=== PATIENT | male | born 2000 ===

== ENCOUNTER 2020-11-03 03:35 | Inpatient (IN) | payer OTHER, SELFPAY ==
[~2020-11-03] VITALS: Ht 188 cm; Wt 84.1 kg
[2020-11-03] VITALS (15 sets, daily range): BP systolic 31–153; BP diastolic 24–100
[2020-11-03] MEDS ORDERED: AMIODARONE 150MG/3ML INJ (J0282) IVP STA (04:01)
[2020-11-03] MEDS ORDERED: SODIUM BICARBONATE 8.4% INJ 50 ML SYRINGE IV STA ×3 (04:02→04:16)
[2020-11-03] MEDS ORDERED: EPINEPHrine 1MG/10ML SYRINGE 1.5IN IV STA ×9 (04:04→06:01)
[2020-11-03] MEDS ORDERED: MAG SULF 1GM/100ML (MAG RUN) 1 GM in IV 1 EA IV ONE (04:05)
[2020-11-03 04:25] LABS: HEMATOCRIT 41.5 % (42.0-52.0); HEMOGLOBIN 12.3 g/dl (13.5-17.5); MEAN CORPUSCULAR HEMOGLOBIN 28.9 pg (27.0-33.0); MEAN CORPUSCULAR HGB CONC 29.6 g/dl (32.0-36.5); MEAN CORPUSCULAR VOLUME 97.4 fl (80.0-96.0); RED BLOOD COUNT 4.26 10^6/uL (4.30-6.10); WHITE BLOOD COUNT 6.2 10^3/uL (4.0-10.0)
[2020-11-03 04:47] LABS: PLATELET COUNT, AUTOMATED 64 10^3/uL (150-450)
[2020-11-03 04:52] LABS: ANISOCYTOSIS 1+; ATYPICAL LYMPH 8 % (0-5); LYMPHOCYTES 79 % (16-44); MONOCYTES 4 % (0-5); NEUTROPHILS 9 % (28-66); PLATELET ESTIMATE MARKED DECREASE (NORMAL); POIKILOCYTOSIS 1+; SMUDGE CELLS 1+
[2020-11-03 04:54] LABS: BURR CELLS 2+
[2020-11-03 04:57] LABS: ALBUMIN 2.6 GM/DL (3.2-5.2); BILIRUBIN,DIRECT 0.1 MG/DL (0.0-0.2); BILIRUBIN,TOTAL 0.4 MG/DL (0.2-1.0); CALCIUM LEVEL 8.3 MG/DL (8.5-10.1); CK-MB VALUE MASS 7.2 NG/ML (<3.6); CREATININE FOR GFR 1.59 MG/DL (0.70-1.30); FREE T4 1.15 NG/DL (0.76-1.46); GLOMERULAR FILTRATION RATE 58.8 (>60); MB/CK RELATIVE INDEX 1.06 (< OR =4); POTASSIUM SERUM 4.5 MEQ/L (3.5-5.1); THYROID STIMULATING HORMONE 4.62 uIU/ML (0.358-3.740); TOTAL PROTEIN 5.8 GM/DL (6.4-8.2); TROPONIN I 0.42 NG/ML (< 0.10)
--- NOTE | 2020-11-03 05:22 | REPVR ---
PROCEDURE INFORMATION: Exam: XR Chest Exam date and time: 11/03/2020 4:00 AM Age: 20 years old Clinical indication: Other: Arrest, it; Additional info: S/P arrest TECHNIQUE: Imaging protocol: XR of the chest. Views: 1 view. COMPARISON: No relevant prior studies available. FINDINGS: Tubes, catheters and devices: Endotracheal tube tip resides 2.6 cm above the sea. Lungs: Bilateral rather diffuse pulmonary infiltrates which are most pronounced in the upper lobes. Pleural spaces: Unremarkable. No pleural effusion. No pneumothorax. Heart/Mediastinum: Accentuation of the cardiac silhouette which may be on the basis of AP technique. Bones/joints: Unremarkable. IMPRESSION: Bilateral pulmonary infiltrates with prominent airspace component most prominent in the upper lobes. Electronically signed by: Allie Minor On 11/03/2020 05:21:58 AM
--- NOTE | 2020-11-03 05:23 | REPVR ---
PROCEDURE INFORMATION: Exam: CT Head Without Contrast Exam date and time: 11/03/2020 4:15 AM Age: 20 years old Clinical indication: Other: Hanging; Additional info: Arrest S/P hanging TECHNIQUE: Imaging protocol: Computed tomography of the head without contrast. Radiation optimization: All CT scans at this facility use at least one of these dose optimization techniques: automated exposure control; mA and/or kV adjustment per patient size (includes targeted exams where dose is matched to clinical indication); or iterative reconstruction. COMPARISON: No relevant prior studies available. FINDINGS: Brain: Diffuse effacement of sulci. Trace CSF in basal cisterns. Poor differentiation of kaiser and white matter. Cerebral ventricles: Small central ventricular system. Paranasal sinuses: Visualized sinuses are unremarkable. No fluid levels. Mastoid air cells: Visualized mastoid air cells are well aerated. Bones/joints: Unremarkable. No acute fracture. Soft tissues: Unremarkable. IMPRESSION: Diffuse intracranial mass effect consistent with cerebral edema. Electronically signed by: Blake Landry On 11/03/2020 05:23:00 AM
--- NOTE | 2020-11-03 05:26 | REPVR ---
PROCEDURE INFORMATION: Exam: CT Cervical Spine Without Contrast Exam date and time: 11/03/2020 4:15 AM Age: 20 years old Clinical indication: Injury or trauma; Other: Hanging; Concussion/head injury; Additional info: Arrest S/P hanging TECHNIQUE: Imaging protocol: Computed tomography images of the cervical spine without contrast. Radiation optimization: All CT scans at this facility use at least one of these dose optimization techniques: automated exposure control; mA and/or kV adjustment per patient size (includes targeted exams where dose is matched to clinical indication); or iterative reconstruction. COMPARISON: CR PORTABLE CHEST X-RAY 11/03/2020 4:00 AM FINDINGS: Tubes, catheters and devices: ET tube in position. Bones/joints: No acute fracture. Normal alignment. Discs/Spinal canal/Neural foramina: No significant disc protrusion. No severe spinal canal stenosis. No significant neural foraminal narrowing. Sinuses: Minimal left maxillary sinus mucosal thickening. Lungs: Bilateral upper lobe pulmonary infiltrates and consolidation. Soft tissues: Unremarkable. IMPRESSION: 1. ET tube in position. 2. Minimal left maxillary sinus disease. 3. Bilateral upper lobe pulmonary infiltrates and consolidation which may reflect pulmonary edema. Pneumonia is not excluded. 4. Otherwise negative CT cervical spine. No fracture or subluxation is evident and no spinal or foraminal stenosis. Electronically signed by: Blake Landry On 11/03/2020 05:26:07 AM
--- NOTE | 2020-11-03 05:50 | REPVR ---
PROCEDURE INFORMATION: Exam: XR Chest Exam date and time: 11/03/2020 5:23 AM Age: 20 years old Clinical indication: Other: Eval og tubes; Additional info: Eval og tube TECHNIQUE: Imaging protocol: XR of the chest. Views: 1 view. COMPARISON: CR PORTABLE CHEST X-RAY 11/03/2020 4:00 AM FINDINGS: Tubes, catheters and devices: ET tube in position with the tip just below the clavicular heads, approximately 2.6 cm above the sea. OG tube forming a loop in the stomach with the tip extending into the gastric fundus. Lungs: Bilateral pulmonary infiltrates and consolidation, greatest in the right upper lobe which is increased since the prior study. Pleural spaces: Unremarkable. No pleural effusion. No pneumothorax. Heart/Mediastinum: Unremarkable. No cardiomegaly. Bones/joints: Unremarkable. IMPRESSION: 1. OG tube insertion since the prior study which forms a loop in the stomach with the tip extending into the gastric fundus. 2. Increased bilateral pulmonary infiltrates and consolidation since the study done earlier in the day consistent with pulmonary edema Electronically signed by: Blake Landry On 11/03/2020 05:49:26 AM
[2020-11-03 05:56] LABS: ABG BASE EXCESS -18.4 (-2.0-2.0); ABG HCO3 15.5 MEQ/L (22.0-26.0); ABG O2 SATURATION 83.1 % (95.0-99.0); ABG PARTIAL PRESSURE O2 75.3 mmHg (75.0-100.0); ABG STANDARD HCO3 10.9 MEQ/L (22.0-26.0); ABG TOTAL CO2 17.9 MEQ/L (22.0-29.0)
[2020-11-03 05:57] LABS: ABG PARTIAL PRESSURE CO2 78.7 mmHg (35.0-45.0); ABG pH (ARTERIAL) 6.913 UNITS (7.350-7.450)
[2020-11-03] MEDS: NOREPINEPHRINE BITARTRATE 8 MG in D5W 492 ML IV SCH ×2 (05:58→08:00)
[2020-11-03] MEDS ORDERED: FUROSEMIDE 40MG/4ML VIAL (J1940) IV ONE (06:10)
[2020-11-03 06:46] LABS: MAGNESIUM LEVEL 3.5 MG/DL (1.8-2.4); PHOSPHORUS LEVEL 11.1 MG/DL (2.5-4.9)
[2020-11-03] MEDS ORDERED: HEPARIN SOD (PORCINE) 5000UNITS/ML 1ML VIAL/SYRINGE SC SCH (06:55)
[2020-11-03] MEDS ORDERED: ACETAMINOPHEN 650 MG SUPP PR PRN (06:55)
[2020-11-03] MEDS ORDERED: NOREPINEPHRINE BITARTRATE 8 MG in D5W 492 ML IV SCH ×2 (06:55→10:00)
[2020-11-03] MEDS ORDERED: EPINEPHrine HCL INJ 1 MG in D5W 240 ML IV SCH ×3 (07:45→09:00)
[2020-11-03 07:59] LABS: PROTHROMBIN TIME 31.5 SECONDS (12.7-14.5)
[2020-11-03 08:01] LABS: D-DIMER QUANT > 4000 ng/ml (<500)
--- NOTE | 2020-11-03 08:10 | ECGEPIP ---
[facility] - ED Test Date: 2020-11-03 Pat Name: SAMANTHA RALPH Department: Room: - Gender: Male Returner: KAYLA : 2000 Requested By: MARIA T Angela Order Number: [id number] Reading MD: Mauricio Astudillo Measurements Intervals [place] Rate: 38 P: MA: QRS: 201 QRSD: 154 T: 43 QT: 502 QTc: 399 Interpretive Statements Critical Test Result: Low HR , Arrhythmia Idioventricular rhythm Right bundle branch block NO PRIORS FOR COMPARISON Electronically Signed on 11-03-2020 8:09:35 EDT by Mauricio Astudillo
--- NOTE | 2020-11-03 08:10 | ECGEPIP ---
[facility] - ED Test Date: 2020-11-03 Pat Name: SAMANTHA RALPH Department: Room: - Gender: Male Test Developer: KAYLA : 2000 Requested By: MARIA T Angela Order Number: [id number] Reading MD: Mauricio Astudillo Measurements Intervals [place] Rate: 75 P: -18 HI: 234 QRS: 198 QRSD: 168 T: 51 QT: 474 QTc: 529 Interpretive Statements Sinus rhythm with 1st degree AV block Right bundle branch block RHYTHM/RATE CHANGE COMPARED TO PRIOR ON SAME DATE Electronically Signed on 11-03-2020 8:10:09 EDT by Mauricio Astudillo
--- NOTE | 2020-11-03 08:11 | HPEPDOC ---
[facility] Medical History & Physical Date of Admission Nov 03, 2020 Date of Service: Nov 03, 2020 Attending Physician: PRIETO GARCIA MD History and Physical CHIEF COMPLAINT: Cardiac arrest HISTORY OF PRESENT ILLNESS: This is a 20-year-old male with no significant past medical history brought in by EMS with cardiac arrest. Patient is a personnel and last seen alive around 12:30 AM this morning. He was found hanging around 2:15 AM in the field/[place] and personnel performed CPR. EMS arrived and continue along with CPR with epinephrine's. He was brought into the emergency department in cardiac arrest status. He received several rounds of CPR, epinephrine. Initial arrest rhythm was PEA. However in the emergency department, he had several episodes of ventricular fibrillation and torsades. He received shock and amiodarone. ROSC was achieved and ICU was consulted for further management. Total arrest time is approximately 1.5 hours. Post cardiac arrest and with ROSC, his pupils are not reactive to light and they are completely dilated. There is no evidence of corneal, gag, cough reflexes. He is not breathing over the ventilator. There are clinical evidence of anoxic brain injury and possible brain . Work-up revealed that he is a multiorgan failure with JYOTSNA, shock liver, hypoxic respiratory failure secondary to pulmonary contusion, cerebral edema, cardiogenic versus neurogenic shock requiring vasopressor support. I had extensive discussion with his Chances we regarding to his poor prognosis. Patient is currently undergoing targeted temperature management at 36 C. I also spoke to his mom and grandmother. They all like to keep him at full code for now. Bedside echocardiogram done show severely hypokinetic ventricles. PAST MEDICAL HISTORY: None PAST SURGICAL HISTORY: None SOCIAL HISTORY: Patient is and [place] with his . FAMILY HISTORY: Noncontributory to this hospital admission. ALLERGIES: Please see below. REVIEW OF SYSTEMS: Unable to complete review of system due to patient being encephalopathic, intubated and with anoxic brain injury. HOME MEDICATIONS: Please see below. PHYSICAL EXAMINATION: VITAL SIGNS: See below for vital sign GENERAL APPEARANCE: Encephalopathic and not responding to any verbal or painful stimuli. HEENT: No evidence of JVD or cervical adenopathy CARDIOVASCULAR: Normal S1-S2 with no evidence of murmur. LUNGS: Clear to auscultation bilaterally. ABDOMEN: Soft, not distended, absent of bowel sounds. MUSCULOSKELETAL: No evidence of joint effusion or joint swelling. EXTREMITIES: No clubbing or pedal edema. NEUROLOGICAL: Pupils are fixed and dilated, they are not reactive to light. Doll's eye. There is no evidence of gag or cough reflexes. There is no duane dence of corneal reflexes. He is not responding to any painful or verbal stimuli. He is not breathing over the ventilator. PSYCHIATRIC: Cannot be assessed. LABORATORY DATA: See below. MICROBIOLOGY: Please see below. ASSESSMENT: This is a 20-year-old male with no significant past medical history brought in by EMS with cardiac arrest after being found hanged. #Status post cardiac arrest -Patient will undergo 24 hours of targeted temperature management. However, it is poor prognosis given the duration of cardiac arrest and evidence of anoxic brain injury with suspected brain . #Cardiogenic and neurogenic shock -Secondary to cardiac arrest and cerebral edema. Continue Levophed. We will add epinephrine. #Anoxic brain injury with suspected brain -He will undergo 24 hours of targeted temperature management. There is evidence of cerebral edema on the CT scan of the brain. Prognosis is extremely poor given lack of brainstem reflexes. We will determine neurological prognosis once he finished with 24 hours of TTM. #Hypoxic respiratory failure -Secondary to hanging, cardiac arrest, pulmonary contusion. Patient is currently on mechanical ventilator with high PEEP and high FiO2 settings. #JYOTSNA -Secondary to cardiac arrest. We will continue to monitor urine output and electrolytes. #Shock liver -Secondary to cardiac arrest #Multiorgan failure #Elevated troponin -Secondary to cardiac arrest and CPR. #Anion gap metabolic acidosis with lactic acidosis -This is secondary to cardiac arrest. Patient received multiple amps of sodium bicarb. We will have serial BMP. Trend lactate. DVT prophylaxis: Heparin subcutaneous GI prophylaxis: Protonix Diet: N.p.o. Vital Signs Vital Signs Date Time Temp Pulse Resp B/P (MAP) Pulse Ox O2 Delivery O2 Flow Rate FiO2 11/03/20 06:35 89 18 95/50 (65) 76 Ventilator 11/03/20 05:05 100 11/03/20 03:40 95.2 Laboratory Data Labs 24H Laboratory Tests 2 11/03/20 04:11: Immature Granulocyte % (Auto) , Neutrophils (%) (Auto) , Neutrophils # (Auto) , Nucleated Red Blood Cells % (auto) 0.6H, Neutrophils 9L, Lymphocytes (Manual) 79H, Monocytes (Manual) 4, Atypical Lymphocytes 8H, Poikilocytosis 1+, Ani socytosis 1+, [place] Cells 2+, Smudge Cells 1+, Platelet Estimate MARKED DECREASE, Immature Platelet Fraction 4.1, Anion Gap 26H, Glomerular Filtration Rate 58.8L, Calcium Level 8.3L, Phosphorus Level 11.1H, Magnesium Level 3.5H, Total Bilirubin 0.4, Direct Bilirubin 0.1, Aspartate Amino Transf (AST/SGOT) 306H, Alanine Aminotransferase (ALT/SGPT) 300H, Alkaline Phosphatase 63, Total Creatine Kinase 678H, Creatine Kinase MB 7.2H, Creatine Kinase MB Relative Index 1.06, Troponin I 0.42H, Total Protein 5.8L, Albumin 2.6L, Albumin/Globulin Ratio 0.8, Amylase Level 244H, Lipase 297, Thyroid Stimulating Hormone (TSH) 4.620H, Free Thyroxine 1.15 11/03/20 05:49: Blood Gas Bicarbonate Standard 10.9L, Arterial Blood pH 6.913*L, Arterial Blood Partial Pressure CO2 78.7*H, Arterial Blood Partial Pressure O2 75.3, Arterial Blood Total CO2 17.9L, Arterial Blood HCO3 15.5L, Arterial Blood Base Excess - 18.4L, Arterial Blood Oxygen Saturation 83.1L 11/03/20 06:02: Lactic Acid Level 10.6*H CBC/BMP Laboratory Tests 11/03/20 04:11 Microbiology Microbiology 11/03/20 Blood Culture, Received Pending 11/03/20 Blood Culture, Received Pending 11/03/20 Respiratory Virus Panel (PCR) ([facility]) - Final, Complete Allergies Coded Allergies: Unable to Assess (Verified Allergy, Unknown, CRITICAL PATIENT UNABLE TO RENDER DATA, 11/03/20) A-FIB/CHADSVASC A-FIB History Current/History of A-Fib/PAF?: No PRIETO GARCIA MD Nov 03, 2020 08:11
[2020-11-03 08:20] LABS: PARTIAL THROMBOPLASTIN TIME 129.5 SECONDS (25.9-37.0)
--- NOTE | 2020-11-03 08:38 | REPVR ---
PROCEDURE INFORMATION: Exam: XR Chest Exam date and time: 11/03/2020 6:32 AM Age: 20 years old Clinical indication: Other: Hypoxia TECHNIQUE: Imaging protocol: XR of the chest. Views: 1 view. COMPARISON: CR Chest, 1 view 11/03/2020 5:23 AM FINDINGS: Tubes, catheters and devices: Endotracheal tube is stable in satisfactory position. Nasogastric tube looped within the stomach. Overlying EKG leads. Lungs: Persistent fairly diffuse bilateral ground-glass and consolidative airspace opacities, most pronounced within the right upper lobe. Slightly improved lung aeration. Pleural spaces: No significant pleural effusions. No pneumothorax. Heart/Mediastinum: Cardiac size is normal and mediastinal contour stable. Bones/joints: Bones are stable. IMPRESSION: 1. Support tubes are stable in position. 2. Extensive bilateral airspace disease with slightly improved lung aeration. Findings may represent noncardiogenic edema and/or aspiration pneumonitis. Electronically signed by: Ronnell Barlow On 11/03/2020 08:38:20 AM
[2020-11-03] MEDS ORDERED: VASOPRESSIN INJ 20 UNITS in NS 499 ML IV STA ×3 (08:57→09:08)
[2020-11-03] MEDS ORDERED: CHLORHEXIDINE GLUCONATE 0.12 % 15ML UDC (PERIDEX ORAL RINSE) MT SCH (09:00)
[2020-11-03] MEDS ORDERED: PANTOPRAZOLE 40MG VIAL (C9113 PER 1) IV SCH (09:00)
[2020-11-03] MEDS ORDERED: LACRILUBE (AKWA TEARS) OPHTH OINT 3.5 GM OU SCH (09:00)
[2020-11-03] MEDS ORDERED: HOME MED LIST COMPLETE! XX SCH (09:10)
--- NOTE | 2020-11-03 09:36 | ROOPDOC ---
[facility] Report Of Operation Report of Operation DATE OF PROCEDURE: 11/03/20 PROCEDURE PERFORMED: Left radial arterial line insertion. PREPROCEDURE DIAGNOSES: Cardiogenic and neurogenic shock. POSTPROCEDURE DIAGNOSES: Cardiogenic and neurogenic shock. SURGEON: Dr. Collin MD ESTIMATED BLOOD LOSS: Approximately 1 mL. Attempt: 1 COMPLICATIONS: None. DESCRIPTION OF PROCEDURE: A time out was performed. My hands were washed immediately prior to the pr ocedure. I wore a mask with protective eyewear, sterile gloves throughout the procedure. After an Chance test was performed to ensure adequate perfusion, the left wrist was prepped using chlorhexidine scrub and draped in sterile fashion using a three quarter sheet drape and sterile towels. The radial pulse was identified and the wrist was positioned in the usual fashion. Using the Arrow Radial Arterial Line Kit, a needle was inserted into the radial artery under ultrasound guidance. Arterial blood was seen to pulsate in the flash chamber. The internal guidewire was advanced easily into the radial artery. The catheter was then advanced over the wire and the needle and wire were withdrawn. The catheter was sutured in place. A sterile opsite was placed over the catheter at the insertion site. The patient tolerated the procedure without any hemodynamic compromise. At the time of procedure completion, the catheter was connected to the panel monitor and calibrated. Appropriate waveform and blood pressure tracing was observed. Estimated blood loss is 1 cc. PRIETO GARCIA MD Nov 03, 2020 09:35
[2020-11-03] MEDS ORDERED: EPINEPHrine HCL INJ 4 MG in D5W 960 ML IV SCH (10:30)
--- NOTE | 2020-11-03 13:22 | DS.PDOC ---
Discharge Summary General Date of Admission Nov 03, 2020 at 06:51 Date of Discharge 11/03/2020 Attending Physician: PRIETO GARCIA MD Discharge Summary PROCEDURES PERFORMED DURING STAY: Radial arterial line cannulation. ADMITTING DIAGNOSES: 1. Cardiac arrest. 2. Hypoxic respiratory failure secondary to asphyxiation 3. Cardiogenic and neurogenic shock 4. Shock liver 5. Coagulopathy 6. JYOTSNA 7. Anoxic encephalopathy 8. Anoxic brain injury 9. Suspected brain 10. Multiorgan failure 11. Hemoptysis 12. Strangulation of the neck DISCHARGE DIAGNOSES: 1. Cardiac arrest. 2. Hypoxic respiratory failure secondary to asphyxiation 3. Cardiogenic and neurogenic shock 4. Shock liver 5. Coagulopathy 6. JYOTSNA 7. Anoxic encephalopathy 8. Anoxic brain injury 9. Suspected brain 10. Multiorgan failure 11. Hemoptysis 12. Strangulation of the neck COMPLICATIONS/CHIEF COMPLAINT: Asphyxiation By Hanging, Cardiac Arrest. HISTORY OF PRESENT ILLNESS: This is a 20-year-old male with no significant past medical history who was brought in by personnel after being found hanging in the [place]. HOSPITAL COURSE: This is a 20-year-old male with no significant past medical history who was found by personnel hanging in the [place]. He was seen normal around 12:30 AM and found hanging in the [place] around 2:15 AM. Resuscitation effort was immediately initiated and EMS arrived and continuing with resuscitation effort. This was continue on until he arrived to the emergency department. Initial arrest rhythm was PEA cardiac arrest. Eventually when he arrived to the emergency department he went into several episodes of ventricular fibrillation and torsades. He received multiple CPR, defibrillation, amiodarone, epinephrine. Return of spontaneous circulation was achieved after a pproximately 1-1/2 hours of resuscitation effort. There was evidence of cerebral edema he was eventually transferred to ICU for targeted temperature management. He was in multiorgan failure upon arrival with evidence of anoxic brain injury, suspected brain , coagulopathy, shock liver, JYOTSNA, cardiogenic and neurogenic shock. Targeted temperature management had to be prematurely stopped due to underlying coagulopathy and bleeding from every orifice. He went into PEA arrest again in the ICU and had to be resuscitated for total of 40 minutes. He received multiple rounds of CPR and epinephrine with very brief ROSC obtained after epinephrine administration. During the entire time of resuscitation effort, he was on 40 mcg/min of Levophed, 30 mcg/min of epinephrine, and vasopressin. After 40 minutes of heroic effort, a consent decision was made to abort resuscitation. Patient at 10:56 AM on November 03, 2020. Physical examination done at the time of showed no evidence of brainstem reflexes including pupillary, corneal, gag, cough reflexes. Patient was not initiating any breaths on the ventilator. There was absence of pulse by palpation and by Doppler. forensic document examiner was consulted at the time of . The significant will be completed by director of medical staff services. DISCHARGE MEDICATIONS: Please see below. ALLERGIES: Please see below. PHYSICAL EXAMINATION ON DISCHARGE: VITAL SIGNS: Please see below. GENERAL: Patient is , there is no spontaneous movement or respiration HEENT: Intubated NECK: Supple CARDIOVASCULAR EXAMINATION: Absence of heart sounds, absence of pulse by palpation or by Doppler RESPIRATORY EXAMINATION: Absence of respiratory drive ABDOMINAL EXAMINATION: Soft EXTREMITIES: No edema SKIN: Multiple tattoos but no rash NEUROLOGICAL EXAMINATION: Absence of pupillary, corneal, gag, cough reflexes. dolls eyes. No spontaneous respiratory drive. PSYCHIATRIC EXAMINATION: Cannot be assessed LABORATORY DATA: Please see below. DISCHARGE PLAN: Discharge to [facility] [place] DISPOSITION: . DISCHARGE CONDITION: Patient . TIME SPENT ON DISCHARGE: 30 minutes. Vital Signs/I&Os Vital Signs Date Time Temp Pulse Resp B/P (MAP) Pulse Ox O2 Delivery O2 Flow Rate FiO2 11/03/20 10:30 102 31/27 68 11/03/20 10:00 100 11/03/20 09:45 Ventilator 11/03/20 09:30 94.5 18 Laboratory Data Labs 24H Laboratory Tests 2 11/03/20 04:11: Immature Granulocyte % (Auto) , Neutrophils (%) (Auto) , Neutrophils # (Auto) , Nucleated Red Blood Cells % (auto) 0.6H, Neutrophils 9L, Lymphocytes (Manual) 79H, Monocytes (Manual) 4, Atypical Lymphocytes 8H, Poikilocytosis 1+, Anisocytosis 1+, [place] Cells 2+, Smudge Cells 1+, Platelet Estimate MARKED DECREASE, Immature Platelet Fraction 4.1, Anion Gap 26H, Glomerular Filtration Rate 58.8L, Calcium Level 8.3L, Phosphorus Level 11.1H, Magnesium Level 3.5H, Total Bilirubin 0.4, Direct Bilirubin 0.1, Aspartate Amino Transf (AST/SGOT) 306H, Alanine Aminotransferase (ALT/SGPT) 300H, Alkaline Phosphatase 63, Total Creatine Kinase 678H, Creatine Kinase MB 7.2H, Creatine Kinase MB Relative Index 1.06, Troponin I 0.42H, Total Protein 5.8L, Albumin 2.6L, Albumin/Globulin Ratio 0.8, Amylase Level 244H, Lipase 297, Thyroid Stimulating Hormone (TSH) 4.620H, Free Thyroxine 1.15 11/03/20 05:49: Blood Gas Bicarbonate Standard 10.9L, Arterial Blood pH 6.913*L, Arterial Blood Partial Pressure CO2 78.7*H, Arterial Blood Partial Pressure O2 75.3, Arterial Blood Total CO2 17.9L, Arterial Blood HCO3 15.5L, Arterial Blood Base Excess - 18.4L, Arterial Blood Oxygen Saturation 83.1L 11/03/20 06:02: Prothrombin Time 31.5H, Prothromb Time International Ratio 3.00, Activated Partial Thromboplast Time 129.5*H, D-Dimer, Quantitative > 4000H, Lactic Acid Level 10.6*H 11/03/20 08:49: Bedside Glucose (Misc Panel) 134H CBC/BMP Laboratory Tests 11/03/20 04:11 FSBS Laboratory Tests Test 11/03/20 08:49 Range/Units Bedside Glucose (Misc Panel) 134 70-105 MG/DL Microbiology Microbiology 11/03/20 Blood Culture, Received Pending 11/03/20 Blood Culture, Received Pending 11/03/20 Respiratory Virus Panel (PCR) ([facility]) - Final, Complete Discharge Medications No Active Prescriptions or Reported Meds Allergies Coded Allergies: No Known Allergies (Unverified , 11/03/20) PRIETO GARCIA MD Nov 03, 2020 13:22
== END 2020-11-03 10:56 | disposition expired | DRG 922 ==
LOC: M ED 03:35 → EDBD 03:35 → M ED INP 06:51 → SUATTDRO 06:51 → ENRESERV 07:54 → M ICU 08:00
PROVIDERS: ADMIT Internal Medicine Critical Care Medicine; ATTEND Internal Medicine Critical Care Medicine
PROC: 5A1935Z Respiratory Ventilation, Less than 24 Consecutive Hours (ICD-10-PCS; principal; 2020-11-03)
DX: T71.192A Asphyxiation due to mechanical threat to breathing due to other causes, intentional self-harm, initial encounter (principal); J96.91 Respiratory failure, unspecified with hypoxia; K72.00 Acute and subacute hepatic failure without coma; G93.6 Cerebral edema; N17.9 Acute kidney failure, unspecified; R04.2 Hemoptysis; D68.9 Coagulation defect, unspecified; E87.2 Acidosis; I46.8 Cardiac arrest due to other underlying condition; R57.0 Cardiogenic shock; R57.8 Other shock